=== PATIENT | female | born 1995 | race Caucasian/White ===

== ENCOUNTER 2019-07-16 19:44 | Emergency (ER) | payer BC ==
[~2019-07-16] VITALS: Ht 165.1 cm; Wt 61.2 kg
[2019-07-16 20:00] VITALS: BP 132/71
[2019-07-16] MEDS ORDERED: DOXY100C14 PO (20:48)
--- NOTE | 2019-07-16 20:48 | PHYS DOC ---
Past Medical History Past Medical History: Hypertension, Migraines, Other Additional Past Medical Histor: " allergic reaction to odors and cigarette smoke" ovarian cysts, Past Surgical History: No Surgical History Alcohol Use: None Drug Use: None Adult General Chief Complaint Chief Complaint: SKIN PROBLEM [facility] HPI Patient is a 24-year-old female who presents with complaint of diffuse rash that she noticed first this morning but has progressively spread to cover her entire body. Patient states that she has had no itching but she feels like her skin is sore to the touch all over. She does indicate that she had some mild congestion and cough a few days ago but had no fever. She denies any chest pain or shortness of breath. She states that she has not made any recent changes to soaps, detergents or lotions.[] Review of Systems Review of Systems Constitutional: Denies fever or chills [] Respiratory: Denies cough or shortness of breath [] Cardiovascular: No additional information not addressed in HPI [] Integument: Positive rash[] Neurologic: Denies headache, focal weakness or sensory changes [] Allergies Allergies Allergies Coded Allergies Type Severity Reaction Last Updated Verified cinnamon Allergy Severe 06/27/14 No Physical Exam Physical Exam Constitutional: Well developed, well nourished, no acute distress, non-toxic appearance. [] HENT: Normocephalic, atraumatic, bilateral external ears normal, oropharynx moist, no oral exudates, nose normal. [] Cardiovascular:Heart rate regular rhythm, no murmur [] Lungs & Thorax: Bilateral breath sounds clear to auscultation [] Skin: There is a diffuse maculopapular rash with minimal involvement to the face and sparing of the palms and soles. [] Extremities: No tenderness, no cyanosis, no clubbing, ROM intact, no edema. [] Neurologic: Alert and oriented X 3, no focal deficits noted. [] Current Patient Data Vital Signs Vital Signs Date Time Temp Pulse Resp B/P (MAP) Pulse Ox O2 Delivery O2 Flow Rate FiO2 07/16/19 20:00 99.2 93 16 132/71 (91) 98 Room Air 99.2 EKG EKG [] Radiology/Procedures Radiology/Procedures [] Course & Med Decision Making Course & Med Decision Making Pertinent Labs and Imaging studies reviewed. (See chart for details) [] Dragon Disclaimer Dragon Disclaimer This electronic medical record was generated, in whole or in part, using a voice recognition dictation system. Departure Departure Impression: Primary Impression: Viral exanthem, unspecified Disposition: HOME, SELF-CARE Condition: STABLE Referrals: NO PCP (PCP) Patient Instructions: Viral Exanthems, Adult Scripts Doxycycline Monohydrate (DOXYCYCLINE MONOHYDRATE) 100 Mg Capsule 1 CAP PO BID, #20 CAP Prov: BHANU LEMUS Jr., DO 07/16/19 BHANU LEMUS Jr., DO Jul 16, 2019 20:48
[2019-07-21 17:09] LABS: ROCK MTN SF IGG Equivocal (Negative); ROCKY MTN SF IGM 0.61 index (0.00-0.89)
--- NOTE | 2019-07-22 11:23 | VNOTE ---
CALL BACK NOTE CALL BACK IgG high results communicated to patient. She is on doxycycline and states she will f/u with her PCP as soon as she can HOWARD VALDES APRN Jul 22, 2019 11:23
== END 2019-07-16 21:09 | disposition home or self-care (01) ==
LOC: ER 19:44
DX: B09 Unspecified viral infection characterized by skin and mucous membrane lesions (principal); I10 Essential (primary) hypertension; G43.909 Migraine, unspecified, not intractable, without status migrainosus; Z91.018 Allergy to other foods
CPT/HCPCS: 36415; 86757; 99283; 99284

== ENCOUNTER 2020-07-26 12:45 | Emergency (ER) | payer BC ==
[~2020-07-26] VITALS: Ht 165.1 cm; Wt 63.0 kg
[~2020-07-26 12:45] MED LIST: DOXY100C14 PO
--- NOTE | 2020-07-26 13:38 | PHYS DOC ---
Past Medical History Past Medical History: Hypertension, Migraines, Other Additional Past Medical Histor: " allergic reaction to odors and cigarette smoke" ovarian cysts, Past Surgical History: No Surgical History Smoking Status: Never Smoker Alcohol Use: None Drug Use: None General Adult EDM: Chief Complaint: FLANK PAIN HPI: HPI: History obtained from patient. Patient is a 25-year-old female with no reported PMH who presents with complaint of left flank pain. Patient states the pain began slowly 2 days ago. States is progressively worsened. She does note some mild dysuria and increased urge to void. Denies hematuria. Denies fevers. Does note 1 episode of nonbloody nonbilious emesis prior to arrival. She states she has experienced the symptoms once before when she was much younger and was told she had a kidney infection. Has tried cranberry juice with minimal relief. Denies history of kidney stone. Denies chest pain or shortness of breath. No syncope. Denies vaginal bleeding or discharge. Denies changes to her stool caliber or consistency. Is otherwise tolerating food well. No recent antibiotics. No other complaints. Review of Systems: Review of Systems: Constitutional: Denies fever or chills. [] Eyes: Denies change in visual acuity. [] HENT: Denies nasal congestion or sore throat. [] Respiratory: Denies cough or shortness of breath. [] Cardiovascular: Denies chest pain or edema. [] GI: Denies abdominal pain, nausea, vomiting, bloody stools or diarrhea. [] : Positive for increased urge to void Musculoskeletal: Positive for left leg pain Integument: Denies rash. [] Neurologic: Denies headache, focal weakness or sensory changes. [] Endocrine: Denies polyuria or polydipsia. [] Lymphatic: Denies swollen glands. [] Psychiatric: Denies depression or anxiety. [] Heart Score: Risk Factors: Risk Factors: DM, Current or recent (<one month) smoker, HTN, HLP, family history of CAD, obesity. Risk Scores: Score 0 - 3: 2.5% MACE over next 6 weeks - Discharge Home Score 4 - 6: 20.3% MACE over next 6 weeks - Admit for Clinical Observation Score 7 - 10: 72.7% MACE over next 6 weeks - Early Invasive Strategies Allergies: Allergies: Allergies Coded Allergies Type Severity Reaction Last Updated Verified cinnamon Allergy Severe 06/27/14 No Physical Exam: PE: Constitutional: Well developed, well nourished, no acute distress, non-toxic appearance. [] HENT: Normocephalic, atraumatic, bilateral external ears normal, oropharynx moist, no oral exudates, nose normal. [] Eyes: PERRLA, EOMI, conjunctiva normal, no discharge. [] Neck: Normal range of motion, no tenderness, supple, no stridor. [] Cardiovascular:Heart rate regular rhythm, no murmur [] Lungs & Thorax: Bilateral breath sounds clear to auscultation [] Abdomen: Bowel sounds normal, soft, no tenderness, no masses, no pulsatile masses. [] Skin: Warm, dry, no erythema, no rash. [] Back: No tenderness, no CVA tenderness. [] Extremities: No tenderness, no cyanosis, no clubbing, ROM intact, no edema. [] Neurologic: Alert and oriented X 3, normal motor function, normal sensory function, no focal deficits noted. [] Psychologic: Affect normal, judgement normal, mood normal. [] Current Patient Data: Labs: Laboratory Tests Test 07/26/20 13:15 07/26/20 13:19 07/26/20 14:05 Urine Collection Type Unknown Urine Color Yellow Urine Clarity Cloudy Urine pH 7.0 Urine Specific [place] 1.020 Urine Protein 100 mg/dL Urine Glucose (UA) Negative mg/dL Urine Ketones (Stick) Negative mg/dL Urine Blood Large Urine Nitrite Positive Urine Bilirubin Negative Urine Urobilinogen Dipstick 0.2 mg/dL Urine Leukocyte Esterase Large Urine RBC 3-5 /HPF Urine WBC >40 /HPF Urine Squamous Epithelial Cells Mod /LPF Urine Bacteria Many /HPF Bedside Urine HCG, Qualitative Hcg negative White Blood Count 11.0 x10^3/uL Red Blood Count 4.23 x10^6/uL Hemoglobin 13.7 g/dL Hematocrit 38.6 % Mean Corpuscular Volume 91 fL Mean Corpuscular Hemoglobin 32 pg Mean Corpuscular Hemoglobin Concent 36 g/dL Red Cell Distribution Width 12.3 % Platelet Count 224 x10^3/uL Neutrophils (%) (Auto) 87 % Lymphocytes (%) (Auto) 8 % Monocytes (%) (Auto) 5 % Eosinophils (%) (Auto) 0 % Basophils (%) (Auto) 0 % Neutrophils # (Auto) 9.6 x10^3/uL Lymphocytes # (Auto) 0.8 x10^3/uL Monocytes # (Auto) 0.5 x10^3/uL Eosinophils # (Auto) 0.0 x10^3/uL Basophils # (Auto) 0.0 x10^3/uL Segmented Neutrophils % 88 % Band Neutrophils % 4 % Lymphocytes % 6 % Monocytes % 2 % Platelet Estimate Adequate Sodium Level 137 mmol/L Potassium Level 3.9 mmol/L Chloride Level 101 mmol/L Carbon Dioxide Level 28 mmol/L Anion Gap 8 Blood Urea Nitrogen 10 mg/dL Creatinine 0.7 mg/dL Estimated GFR (Cockcroft-Gault) 100.4 Glucose Level 100 mg/dL Calcium Level 9.0 mg/dL Serum Test, Qualitative Negative Current Medications Medications (Trade) Dose Ordered Sig/Jessica Route PRN Reason Start Time Stop Time Status Last Admin Dose Admin Cefazolin Sodium (Ancef) 1 gm 1X ONCE IVP 07/26/20 15:00 07/26/20 15:03 DC 07/26/20 15:29 Ketorolac Tromethamine (Toradol 15mg Vial) 15 mg 1X ONCE IVP 07/26/20 15:00 07/26/20 15:03 DC 07/26/20 15:29 Laboratory Tests Test 07/26/20 13:19 POC Urine HCG, Qualitative Hcg negative (Negative) Vital Signs: Vital Signs Date Time Temp Pulse Resp B/P (MAP) Pulse Ox O2 Delivery O2 Flow Rate FiO2 07/26/20 13:46 98.6 91 18 118/64 (82) 100 Room Air 98.6 EKG: EKG: [] Radiology/Procedures: Radiology/Procedures: [facility] [address] [place] [address] IMAGING REPORT Signed PATIENT: VERONICA MALONE IACCOUNT: [id number] : 1995 LOCATION: ER AGE: 25 SEX: F EXAM STATUS: REG ER ORD. PHYSICIAN: YAHAIRA JAVIER DO REASON: Right flank pain PROCEDURE: CT ABDOMEN PELVIS WO CONTRAST INDICATION: Reason: Right flank pain / Spl. Instructions: / History: . COMPARISON: None. TECHNIQUE: Axial CT images obtained through the abdomen and pelvis without contrast. One or more of the following individualized dose reduction techniques were utilized for this examination: 1. Automated exposure control; 2. Adjustment of the mA and/or kV according to patient size; 3. Use of iterative reconstruction technique. FINDINGS: The abdominal aorta is not aneurysmal. No intrahepatic bile duct dilation. Limited evaluation of pancreas without contrast. Spleen is unremarkable. Mild prominence of the left greater than right extrarenal pelvis. Multiple calcifications in the pelvis bilaterally. Urinary bladder is somewhat distended at time of exam. Small free fluid within the pelvis. Moderate stool throughout the colon. No periappendiceal inflammatory changes. IMPRESSION: * No evidence of bowel obstruction or appendicitis. * There is some mild prominence of the bilateral extrarenal pelvis. There are multiple calcifications within the pelvis bilaterally with the majority of these secondary to phleboliths. There is a 2 mm calcification near the expected location of the right distal ureter which could be either secondary to a nonobstructive right distal ureter stone or a phlebolith. * Small amount of free fluid in the pelvis with a small amount of it appearing higher than simple density which could be from a small complex component from debris or blood. Electronically signed by: Tommy Bowers MD (07/26/2020 3:36 PM) [id number] DICTATED and SIGNED BY: TOMMY BOWERS MD DATE: 07/26/20 1536 [] Course & Med Decision Making: Course & Med Decision Making Pertinent Labs and Imaging studies reviewed. (See chart for details) [] Patient is a 25-year-old female who presents with chief complaint of right f lank pain and increased urge to void. Urine does show evidence of infection. Normal kidney function. CBC without leukocytosis. Afebrile. CT imaging does reveal a nonspecific calcification of 2 mm of the location of the right distal ureter. No signs of hydronephrosis or obstruction. Unclear whether this represents kidney stone. I do feel clinically the patient is experiencing pyelonephritis. Patient was given 1 g Ancef in the emergency department. I did discuss the possibility of transfer to facility that has urologic care versus close outpatient monitoring. Patient would prefer to go home and monitor her symptoms closely. Overall I do feel this is reasonable. No signs of acutely infected kidney stone. Continues to maintain normal vital signs. Has tolerated p.o. She was given strict return precautions and expressed understanding. She will be discharged home with cephalosporins and Zofran. Stable for discharge. Jessica Disclaimer: Jessica Disclaimer: This electronic medical record was generated, in whole or in part, using a voice recognition dictation system. Departure Departure Impression: Primary Impression: Pyelonephritis Disposition: 01 DC HOME SELF CARE/HOMELESS Condition: STABLE Referrals: NO PCP (PCP) Patient Instructions: Pyelonephritis, Adult Additional Instructions: Please return the emergency department 1224 hrs. should her symptoms not improve or worsen. Scripts Ondansetron Hcl (ZOFRAN) 4 Mg Tablet 4 MG PO PRN TID PRN for NAUSEA, #9 nausea/vomiting Prov: YAHAIRA JAVIER DO 07/26/20 Cefpodoxime Proxetil (CEFPODOXIME PROXETIL) 200 Mg Tablet 1 TAB PO BID for 14 Days, #28 TAB Prov: YAHAIRA JAVIER DO 07/26/20 YAHAIRA JAVIER DO Jul 26, 2020 13:38
[2020-07-26 14:00] LABS: BILIRUBIN,URINE NEGATIVE (NEG); CLARITY,URINE CLOUDY; COLOR,URINE YELLOW; NITRITE,URINE POSITIVE (NEG); PROTEIN,URINE 100 mg/dL (NEG-TRACE); UROBILINOGEN,URINE 0.2 mg/dL (0.2 mg/dL)
[2020-07-26 14:07] LABS: BACTERIA,URINE MANY /HPF (0-FEW); WBC,URINE >40 /HPF (0-4)
[2020-07-26 14:12] LABS: BASO % 0 % (0-3); EOS % 0 % (0-3); HEMATOCRIT 38.6 % (36.0-47.0); HEMOGLOBIN 13.7 g/dL (12.0-15.5); LYMPH # 0.8 x10^3/uL (1.0-4.8); LYMPH % 8 % (24-48); MEAN CORPUSCULAR HEMOGLOBIN 32 pg (25-35); MEAN CORPUSCULAR HGB CONC 36 g/dL (31-37); MEAN CORPUSCULAR VOLUME 91 fL (79-100); MONO # 0.5 x10^3/uL (0.0-1.1); MONO % 5 % (0-9); NEUT # 9.6 x10^3/uL (1.8-7.7); NEUT % 87 % (31-73); PLATELET COUNT 224 x10^3/uL (140-400); RED BLOOD COUNT 4.23 x10^6/uL (3.50-5.40); RED CELL DISTRIBUTION WIDTH 12.3 % (11.5-14.5)
[2020-07-26 14:20] LABS: CREATININE 0.7 mg/dL (0.6-1.0); GFR 100.4; POTASSIUM 3.9 mmol/L (3.5-5.1)
[2020-07-26 14:30] LABS: PREG TEST PT QUAL NEGATIVE (NEG)
[2020-07-26 14:41] LABS: % BANDS 4 % (0-9); % SEGS 88 % (35-66); PLT ESTIMATE ADEQUATE (ADEQUATE)
[2020-07-26 14:42] LABS: % LYMPHS 6 % (24-48); % MONOS 2 % (0-10)
[2020-07-26] MEDS ORDERED: ceFAZolin SODIUM IV Push 1 GM VIAL. IVP ONE (15:00)
[2020-07-26] MEDS ORDERED: KETOROLAC 15 MG/ML VIAL. IVP ONE (15:00)
--- NOTE | 2020-07-26 15:39 | RAD ---
INDICATION: Reason: Right flank pain / Spl. Instructions: / History: . COMPARISON: None. TECHNIQUE: Axial CT images obtained through the abdomen and pelvis without contrast. One or more of the following individualized dose reduction techniques were utilized for this examination: 1. Automated exposure control; 2. Adjustment of the mA and/or kV according to patient size; 3. Use of iterative reconstruction technique. FINDINGS: The abdominal aorta is not aneurysmal. No intrahepatic bile duct dilation. Limited evaluation of pancreas without contrast. Spleen is unremarkable. Mild prominence of the left greater than right extrarenal pelvis. Multiple calcifications in the pelvis bilaterally. Urinary bladder is somewhat distended at time of exam. Small free fluid within the pelvis. Moderate stool throughout the colon. No periappendiceal inflammatory changes. IMPRESSION: * No evidence of bowel obstruction or appendicitis. * There is some mild prominence of the bilateral extrarenal pelvis. There are multiple calcifications within the pelvis bilaterally with the majority of these secondary to phleboliths. There is a 2 mm calcification near the expected location of the right distal ureter which could be either secondary to a nonobstructive right distal ureter stone or a phlebolith. * Small amount of free fluid in the pelvis with a small amount of it appearing higher than simple density which could be from a small complex component from debris or blood. Electronically signed by: Gigi Bowers MD (07/26/2020 3:36 PM) [id number]
[2020-07-26] MEDS ORDERED: ONDA4TAB7 PO (16:05)
[2020-07-26] MEDS ORDERED: CEFP200T PO (16:05)
[2020-07-26 16:45] VITALS: BP 114/55
== END 2020-07-26 16:47 | disposition home or self-care (01) ==
LOC: ER 12:45
DX: N12 Tubulo-interstitial nephritis, not specified as acute or chronic (principal); I10 Essential (primary) hypertension; G43.909 Migraine, unspecified, not intractable, without status migrainosus; Z91.018 Allergy to other foods
CPT/HCPCS: 36415; 74176; 80048; 81001; 81025; 84703; 85007; 85025; 87086; 96374; 96375; 99284; J0690; J1885